=== PATIENT | female | born 1970 | race Caucasian/White ===

== ENCOUNTER 2016-09-04 22:59 | Emergency (ER) | payer MEDICAID ==
--- NOTE | ~2016-09-04 | EKG ---
PATIENT: MARTY ARAYA UNIT #: [id number] Ventricular Rate: 103 BPM Atrial Rate: 103 BPM P-R Interval: 172 ms QRS Duration: 84 ms Q-T Interval: 336 ms QTC Calculation(Bezet): 440 ms P [place]: 67 degrees Calculated R [place]: 55 degrees Calculated T [place]: 51 degrees Diagnosis Line: Sinus tachycardia Diagnosis Line: Possible Left atrial enlargement Diagnosis Line: Borderline ECG Diagnosis Line: When compared with ECG of 09-AUG-2014 11:37, Diagnosis Line: No significant change was found Diagnosis Line: Confirmed by JARED ROSSI MD ([id number]) on Diagnosis Line: 09/05/2016 2:01:46 PM INTERPRETING MD: SISI
--- NOTE | ~2016-09-04 | CT71 ---
[facility] A Service of [facility] RADIOLOGY TEXT RESULTS PATIENT: MARTY ARAYA LOCATION: [facility] : 72 UNIT #: [id number] AGE: [address]: Gen Walker MD SEX: F ORDER DR: [id number] [facility]. [place], [place] [address] [id number] MR#: [id number] Acc #: [id number] NAME: MARTY ARAYA : 1970 SEX: F STUDY DATE/TIME: 09/05/2016 3:31 UNIT: [facility] ROOM: STUDY DESCRIPTION: CT Head Wo Contrast Attending Physician: Gen Walker M.D. Ordering Physician: Gen Walker M.D. Primary Care Physician: Abraham Concepcion M.D. MEDICAL IMAGING REPORT This report is preliminary unless electronic signature is present EXAM CT head, noncontrast, 09/05/2016. HISTORY 45-year-old male in the ED complaining of a 1-day history of headache. He notes left side facial numbness and dizziness. Elevated blood pressure. TECHNIQUE CT examination of the head without IV contrast. This CT exam was performed with one or more of the following radiation dose reduction techniques: automatic exposure control, adjustment of mA and/or kV according to patient size, and iterative reconstruction. FINDINGS The examination is negative. No evidence of intracranial hemorrhage, mass, mass effect, cerebral edema, hydrocephalus, or additional abnormality. IMPRESSION Negative head CT examination. Dictated by... Gustavo Oliveira M.D. THIS IS AN ELECTRONICALLY VERIFIED REPORT Gustavo Oliveira M.D. at 09/05/2016 9:54 PM RGW/kelvin TD: 09/05/2016 13:55 JOB #: [id number] [facility] A Service of [facility] RADIOLOGY TEXT RESULTS PATIENT: MARTY ARAYA LOCATION: [facility] : 72 UNIT #: [id number] AGE: [address]: Gen Walker MD SEX: F ORDER DR: MEDICAL IMAGING REPORT Page 1 of 1 COPY
[~2016-09-04 22:59] MED LIST: AMITRIPTYLINE100 MG PO; ATENOLOL25 MG PO; BACTRIM DS TABL1 TA1 PO; CARTIA XT PO; GLUCOPHAGE500 M1 PO; LIPITOR40 MG; LOSARTAN POTASS50 MG PO; NEURONTIN100 MG PO; REMERON SOLTAB45 MG PO
[2016-09-05 01:58] LABS: BASOPHIL# 0.1 X10e3 (0-0.3); BASOPHIL% 0.6 % (0-2.5); EOSINOPHIL# 0.1 X10e3 (0-0.7); EOSINOPHIL% 0.7 % (0.0-7.0); HEMATOCRIT 44.1 % (35.0-45.0); HEMOGLOBIN 14.7 gm/dL (12.0-16.0); LYMPHOCYTE# 2.1 X10e3 (1.0-3.5); LYMPHOCYTE% 21.5 % (17.0-45.0); MEAN CORPUSCULAR HEMOGLOBIN 29.4 PG (28-34); MEAN CORPUSCULAR HGB CONC 33.5 g/dL (30-36); MONOCYTE# 0.3 X10e3 (0-1.0); NEUTROPHIL# 7.3 X10e3 (1.5-7.1); NEUTROPHIL% 74.2 % (40-75); PLATELET COUNT 241 X10e3 (140-420); RED BLOOD COUNT 5.01 X10e (3.90-5.30); RED CELL DISTRIBUTION WIDTH 14.8 % (11.0-15.5); WHITE BLOOD COUNT 9.9 X10e3 (4.0-10.5)
[2016-09-05 02:00] LABS: DIFF IND NO
[2016-09-05 02:14] LABS: CREATININE SERUM 0.5 mg/dL (0.6-1.4); GLOM FILT RATE Estimated 117.7 mL/min (>60)
[2016-09-05 02:59] LABS: POC - CKMB <1.0 ng/mL (0.0-7.9); POC - TROPONIN <0.05 ng/mL (<=0.05)
== END 2016-09-05 05:15 | disposition home or self-care (01) ==
LOC: CED 22:59
PROVIDERS: Emergency Medicine
DX: F41.0 Panic disorder [episodic paroxysmal anxiety] (principal); R20.2 Paresthesia of skin; R73.9 Hyperglycemia, unspecified; F17.210 Nicotine dependence, cigarettes, uncomplicated; Z79.899 Other long term (current) drug therapy
CPT/HCPCS: 36415; 70450; 80048; 82553; 82947; 84484; 85025; 93005; 99284